=== PATIENT | female | born 1980 | race Caucasian/White ===

== ENCOUNTER 2017-12-31 18:09 | Emergency (ER) | payer OTHER ==
[~2017-12-31] VITALS: Ht 170.2 cm; Wt 77.1 kg
[~2017-12-31 18:09] MED LIST: ACETAMINOPHEN-1 EAC1; ACYCLOVIR 800800 MG PO; AMBIEN 10 MG TA10 MG; AMBIEN 10 MG TA10 MG PO; AMBIEN 5 MG TABL5 M1 PO; ASPIR 8181 MG PO; ATIVAN1 MG; ATIVAN1 MG PO; AUGMENTIN 875875 MG PO; AVELOX400 MG PO; AZITHROMYCIN 2250 MG PO; BACTRIM DS TAB1 EACH PO; BUTALB-APAP-CA1 EACH; CARISOPRODOL 3350 MG PO; CHANTIX0.5 MG PER TUBE; CHANTIX1 MG; CHANTIX1 MG PO; CIPRO500 MG PO; CLEOCIN HCL150 MG PO; COLACE100 MG PO; DARVOCET-N 1001 EACH PO; DEMEROL50 MG PO; DILAUDID 2 MG TA2 MG; DOXYCYCLINE 10100 MG PO; ENOXAPARIN120 MG/0.1 SUBQ; FIORICET 50-321 EACH PO; FLEXERIL PO; FLOVENT HFA 2220 MCG IH; HYDROCODON-ACE1 EAC7 PO; HYDROCODONE-AP1 EAC6 PO; HYDROCODONE-CHLO5 ML PO; HYDROXYZINE HCL25 M1 PO; IBUPROFEN 800800 M1 PO; LORTAB 5 MG/5001 TAB PO; LORTAB 5-325 M1 EACH PO; MEDROLDOSEPACK PO; NAPROSYN500 MG PO; NOHOMEMEDICATIONS; NORCO 5-325 TA1 EACH PO; NYSTATIN 1100000 U/M PO; ONDANSETRON HCL4 M2 PO; OXYCODONE HCL 55 MG; OXYCODONE HCL 55 MG PO; PERCOCET 10-321 EACH PO; PERCOCET 5-3251 EACH PO; PERCOCET PO; PHENERGAN 25 MG25 M1 PO; PLAVIX 75 MG TA75 M1 PO; PREDNISONE 10 M10 M1 PO; PREDNISONE 10 M10 MG PO; PREDNISONE 20 M20 MG PO; PREDNISONE50 MG PO; PROAIR HFA8.5 GM; PROMS25 WY RECTAL; PROVENTIL HFA6.7 G1; ROBAXIN 750 MG750 M1 PO; TRAMADOL 50 MG50 MG PO; TUSSIONEX PENN473 ML PO; VALIUM5 MG; VENTOLIN HFA 1818 GM INH; XANAX 0.5 MG0.5 M1 PO; XARELTO10 MG PO; XARELTO20 MG PO; ZANTAC 150MG T150 MG PO; ZOFRAN 4 MG ORAL4 MG PO; ZOFRAN ODT4 MG PO; ZOFRAN4 MG PO; ZPAK PO
[2017-12-31] MEDS ORDERED: PAXIL10 MG PO (18:15)
[2017-12-31] MEDS ORDERED: WELLBUTRIN XL300 MG PO (18:15)
[2017-12-31] MEDS ORDERED: XANAX 0.5 MG0.5 MG PO (18:15)
[2017-12-31] MEDS ORDERED: HYDROCODONE-AP1 EAC6 PO (19:51)
[2017-12-31 20:02] VITALS: BP 132/89
== END 2017-12-31 20:02 | disposition home or self-care (01) ==
LOC: M.ERS 18:09
DX: M25.552 Pain in left hip (principal); M79.604 Pain in right leg; F17.210 Nicotine dependence, cigarettes, uncomplicated; J45.909 Unspecified asthma, uncomplicated; Z88.0 Allergy status to penicillin; Z88.8 Allergy status to other drugs, medicaments and biological substances; Z90.710 Acquired absence of both cervix and uterus; Z86.73 Personal history of transient ischemic attack (TIA), and cerebral infarction without residual deficits

== ENCOUNTER 2018-03-07 21:09 | Emergency (ER) | payer OTHER ==
[~2018-03-07] VITALS: Ht 170.2 cm; Wt 77.1 kg
[~2018-03-07 21:09] MED LIST changes: +PAXIL10 MG PO; +WELLBUTRIN XL300 MG PO; +XANAX 0.5 MG0.5 MG PO
[2018-03-07] MEDS ORDERED: HYDROCODONE-AP1 EAC6 PO (22:01)
[2018-03-07 22:30] VITALS: BP 142/92
== END 2018-03-07 22:31 | disposition home or self-care (01) ==
LOC: M.ERS 21:09
DX: S62.615A Displaced fracture of proximal phalanx of left ring finger, initial encounter for closed fracture (principal); J45.909 Unspecified asthma, uncomplicated; F17.210 Nicotine dependence, cigarettes, uncomplicated; Z86.73 Personal history of transient ischemic attack (TIA), and cerebral infarction without residual deficits; Z87.442 Personal history of urinary calculi; Z86.718 Personal history of other venous thrombosis and embolism; Z88.1 Allergy status to other antibiotic agents; Z88.8 Allergy status to other drugs, medicaments and biological substances; W21.01XA Struck by football, initial encounter; Y93.89 Activity, other specified; Y92.89 Other specified places as the place of occurrence of the external cause; Y99.8 Other external cause status

== ENCOUNTER 2018-06-03 22:00 | Observation (INO) | payer OTHER ==
[~2018-06-03] VITALS: Ht 170.2 cm; Wt 79.8 kg
[2018-06-03 22:03] VITALS: BP 127/92
[2018-06-03 22:35] LABS: ABSOLUTE EOSINOPHILS 0.4 thou/uL (0.0-0.7); ABSOLUTE LYMPHOCYTES 2.4 thou/uL (0.8-5.3); ABSOLUTE MONOCYTES 0.7 thou/uL (0.0-1.2); ABSOLUTE NEUTROPHILS 3.4 thou/uL (1.6-8.1); BASOPHILS 0.2 %; EOSINOPHILS 6.2 %; HEMATOCRIT 42.6 % (37.0-47.0); HEMOGLOBIN 14.2 gm/dL (12.0-15.0); LYMPHOCYTES 34.6 %; MCH 31.6 pg (26.0-34.0); MCHC 33.3 g/dL (28.0-37.0); MCV 94.9 fL (80.0-100.0); MONOCYTES 9.6 %; MPV 7.5 fl. (7.2-11.1); NUCLEATED RBCS 0 /100WBC; PLATELET COUNT* 313 thou/uL (150-400); POLYS 49.4 %; RDW-CV 14.3 % (10.5-14.5); WBC 6.9 thou/uL (4.0-11.0)
[2018-06-03 22:43] LABS: POC CA IONIZED 4.7 mg/dL (4.5-5.3); POC CREATININE 0.8 mg/dL (0.6-1.3); POC HEMOGLOBIN 14.6 g/dL (12.0-17.0); POC POTASSIUM 3.7 mmol/L (3.5-4.9)
[2018-06-03 22:50] LABS: ANION GAP 4 mmol/L (7-16); BUN 13 mg/dL (7-18); CALCIUM 8.2 mg/dL (8.5-10.1); CHLORIDE 107 mmol/L (98-107); CO2 30 mmol/L (21-32); CREATININE 0.8 mg/dL (0.6-1.3); GLUCOSE 80 mg/dL (70-99); POTASSIUM 3.6 mmol/L (3.5-5.1); SODIUM 141 mmol/L (136-145)
[2018-06-03 22:51] LABS: PROTIME 9.6 Seconds (9.20-11.50)
[2018-06-03 22:56] LABS: ALBUMIN 3.4 g/dL (3.4-5.0); ALKALINE PHOSPHATASE 60 U/L (46-116); SGOT 15 U/L (15-37); SGPT 18 U/L (30-65); TOTAL BILIRUBIN 0.2 mg/dL (<0.1-1.0); TOTAL PROTEIN 6.8 g/dL (6.4-8.2); TROPONIN-I LEVEL <0.06 ng/mL (<0.06)
[2018-06-04] VITALS: BP 192/87
[2018-06-04 01:35] VITALS: BP 112/72
[2018-06-04 02:00] VITALS: BP 112/68
--- NOTE | 2018-06-04 04:33 | NUR ---
RECEIVED REPORT FROM DRESSMAKER GARMENT FITTER, OSCAR, AT 0120. PT ARRIVED TO UNIT VIA CART AT 0140. FAMILY AT BEDSIDE. NURSING ASSESSEMENT COMPLETED, FALL PRECAUTIONS IN PLACE, NON PROFIT JOB TITLES IN PLACE, TRACING SINUS RHYTHM. PT REPORTS PARTIAL PAIN RELIEF. HOURLY ROUNDING COMPLETED, CALL LIGHT WITHIN REACH. VOICED NO CONCERNS THIS SHIFT.
[2018-06-04 08:00] VITALS: BP 123/57
[2018-06-04 09:17] LABS: ALBUMIN 3.1 g/dL (3.4-5.0); CALCIUM 8.5 mg/dL (8.5-10.1); CREATININE 0.7 mg/dL (0.6-1.3); POTASSIUM 3.6 mmol/L (3.5-5.1); TOTAL BILIRUBIN 0.1 mg/dL (<0.1-1.0); TOTAL PROTEIN 6.4 g/dL (6.4-8.2)
[2018-06-04 09:19] LABS: CHOLESTEROL 186 mg/dL (<200); HDL CHOLESTEROL 45 mg/dL (>40); LDL CHOLESTEROL 126 mg/dL (<100); TC:HDL 4.1 Ratio (Not establshd); TRIGLYCERIDE 78 mg/dL (<150); VLDL 16 mg/dL (<40)
[2018-06-04 09:29] LABS: SERUM ASSESSMENT Clear
--- NOTE | 2018-06-04 10:47 | EKG ---
[place] [address] ELECTROCARDIOGRAM REPORT Name: KARINE GUAN BABS Room: [address] ADM IN [facility]#: [id number] Admission: 06/04/18 Attend Phys: Catie Dela Cruz MD Discharge: Date of : 76 Report #: [id number] THIS REPORT FOR: //name// [facility] ED Test Date: 2018-06-03 Test Time: 22:48:39 Pat Name: KARINE THOMPSON Department: Room: [facility] Gender: F Care Analyst: GONZALO : 1980 Requested By: Anil Chamorro Order Number: [id number] : Preet Bansal Measurements Intervals [place] Rate: 58 P: 64 MN: 169 QRS: 50 QRSD: 106 T: 51 QT: 404 QTc: 397 Interpretive Statements Sinus bradycardia Compared to ECG 05/01/2017 21:20:35 rate slowed Electronically Signed On 06-04-2018 10:47:43 CDT by Preet Bansal [email or web address] <ELECTRONICALLY SIGNED> By: Preet Bansal MD, [facility] 06/04/18 1047 2248 2248 Preet Bansal MD, [facility] /EPI
[2018-06-04 12:18] VITALS: BP 101/58
[2018-06-04 14:24] LABS: AMP/METHAMP Negative (Negative); BARBITURATES Negative (Negative); BENZODIAZEPINES POSITIVE (Negative); COCAINE Negative (Negative); METHADONE Negative (Negative); OPIATES POSITIVE (Negative); PCP Negative (Negative); THC POSITIVE (Negative)
[2018-06-04 15:26] VITALS: BP 101/58
== END 2018-06-04 16:00 | disposition home or self-care (01) ==
LOC: M.ERS 22:00 → M.TBA-ER 06-04 00:26 → M.2W 06-04 00:26
PROVIDERS: Emergency Medicine Emergency Medical Services; Internal Medicine; ADMIT Internal Medicine
DX: G93.40 Encephalopathy, unspecified (principal); F41.9 Anxiety disorder, unspecified; G89.29 Other chronic pain; J45.909 Unspecified asthma, uncomplicated; F12.90 Cannabis use, unspecified, uncomplicated; F32.9 Major depressive disorder, single episode, unspecified; F17.210 Nicotine dependence, cigarettes, uncomplicated; Z86.711 Personal history of pulmonary embolism; Z79.899 Other long term (current) drug therapy; Z90.710 Acquired absence of both cervix and uterus; Z86.73 Personal history of transient ischemic attack (TIA), and cerebral infarction without residual deficits; Z86.79 Personal history of other diseases of the circulatory system; Z72.89 Other problems related to lifestyle

== ENCOUNTER 2018-06-06 01:39 | Emergency (ER) | payer OTHER ==
[~2018-06-06] VITALS: Ht 170.2 cm; Wt 77.1 kg
[2018-06-06] MEDS ORDERED: PAXIL10 MG PO (01:52)
[2018-06-06] MEDS ORDERED: XANAX1 MG PO (01:52)
[2018-06-06] MEDS ORDERED: WELLBUTRIN XL300 MG PO (01:52)
[2018-06-06] MEDS ORDERED: NORCO 5-325 TA1 EACH PO (01:53)
[2018-06-06 01:57] LABS: HEMOGLOBIN 13.2 gm/dL (12.0-15.0); MCH 31.6 pg (26.0-34.0); MCHC 33.7 g/dL (28.0-37.0); MCV 93.7 fL (80.0-100.0); MPV 6.9 fl. (7.2-11.1); RBC 4.16 mil/uL (4.20-5.00); RDW-CV 13.9 % (10.5-14.5); WBC 7.8 thou/uL (4.0-11.0)
[2018-06-06 02:08] LABS: CALCIUM 8.1 mg/dL (8.5-10.1); CREATININE 0.7 mg/dL (0.6-1.3)
[2018-06-06] MEDS ORDERED: POTASSIUM20 PO (04:04)
[2018-06-06 04:36] VITALS: BP 104/66
== END 2018-06-06 04:39 | disposition home or self-care (01) ==
LOC: M.ERS 01:39
PROVIDERS: Emergency Medicine Emergency Medical Services
DX: F10.129 Alcohol abuse with intoxication, unspecified (principal); Y90.8 Blood alcohol level of 240 mg/100 ml or more; Z86.73 Personal history of transient ischemic attack (TIA), and cerebral infarction without residual deficits; Z88.8 Allergy status to other drugs, medicaments and biological substances

== ENCOUNTER 2018-07-26 09:27 | Emergency (ER) | payer OTHER ==
[~2018-07-26] VITALS: Ht 165.1 cm; Wt 81.7 kg
[~2018-07-26 09:27] MED LIST changes: +POTASSIUM20 PO; +XANAX1 MG PO
[2018-07-26 09:38] VITALS: BP 127/77
== END 2018-07-26 10:02 | disposition home or self-care (01) ==
LOC: M.ERS 09:27
DX: R10.9 Unspecified abdominal pain (principal); Z53.21 Procedure and treatment not carried out due to patient leaving prior to being seen by health care provider

== ENCOUNTER 2018-09-29 21:53 | Emergency (ER) | payer OTHER ==
[~2018-09-29] VITALS: Ht 170.2 cm; Wt 90.3 kg
[2018-09-29 22:18] LABS: ABSOLUTE BASOPHILS 0.1 thou/uL (0.0-0.2); ABSOLUTE EOSINOPHILS 0.3 thou/uL (0.0-0.7); ABSOLUTE LYMPHOCYTES 2.1 thou/uL (0.8-5.3); ABSOLUTE MONOCYTES 0.5 thou/uL (0.0-1.2); ABSOLUTE NEUTROPHILS 2.9 thou/uL (1.6-8.1); BASOPHILS 1.2 %; EOSINOPHILS 4.6 %; HEMATOCRIT 40.6 % (37.0-47.0); HEMOGLOBIN 13.8 gm/dL (12.0-15.0); LYMPHOCYTES 36.3 %; MCH 31.6 pg (26.0-34.0); MCHC 33.9 g/dL (28.0-37.0); MCV 93.2 fL (80.0-100.0); MONOCYTES 8.1 %; MPV 7.4 fl. (7.2-11.1); NUCLEATED RBCS 0 /100WBC; PLATELET COUNT* 311 thou/uL (150-400); POLYS 49.8 %; RBC 4.36 mil/uL (4.20-5.00); RDW-CV 14.8 % (10.5-14.5); WBC 5.9 thou/uL (4.0-11.0)
[2018-09-29 22:38] LABS: POTASSIUM 3.2 mmol/L (3.5-5.1)
[2018-09-29 22:39] LABS: CALCIUM 8.6 mg/dL (8.5-10.1); CREATININE 0.8 mg/dL (0.6-1.3)
[2018-09-29 22:43] LABS: ALBUMIN 3.6 g/dL (3.4-5.0); TOTAL BILIRUBIN 0.3 mg/dL (<0.1-1.0); TOTAL PROTEIN 6.3 g/dL (6.4-8.2)
[2018-09-29 22:44] LABS: ACETAMINOPHEN < 2 ug/mL (10-30); ALCOHOL 151 mg/dL (<10); SALICYLATE 4.1 mg/dL (2.8-20.0)
[2018-09-29 23:09] VITALS: BP 130/73
== END 2018-09-29 23:10 ==
LOC: M.ERS 21:53
PROVIDERS: Emergency Medicine
DX: F10.129 Alcohol abuse with intoxication, unspecified (principal); Y90.6 Blood alcohol level of 120-199 mg/100 ml; F17.210 Nicotine dependence, cigarettes, uncomplicated; Z88.1 Allergy status to other antibiotic agents; Z88.6 Allergy status to analgesic agent; Z88.8 Allergy status to other drugs, medicaments and biological substances; Z86.73 Personal history of transient ischemic attack (TIA), and cerebral infarction without residual deficits

== ENCOUNTER 2018-11-01 02:41 | Emergency (ER) | payer OTHER ==
[~2018-11-01] VITALS: Ht 170.2 cm; Wt 79.4 kg
[2018-11-01] MEDS ORDERED: OXYCODONE HCL 55 MG PO (02:51)
[2018-11-01] MEDS ORDERED: BRINTELLIX10 MG PO (02:54)
[2018-11-01 03:18] VITALS: BP 102/81
== END 2018-11-01 03:19 | disposition home or self-care (01) ==
LOC: M.ERS 02:41
DX: S60.222A Contusion of left hand, initial encounter (principal); S60.221A Contusion of right hand, initial encounter; F17.210 Nicotine dependence, cigarettes, uncomplicated; Z86.73 Personal history of transient ischemic attack (TIA), and cerebral infarction without residual deficits; Z90.710 Acquired absence of both cervix and uterus; Z88.1 Allergy status to other antibiotic agents; Z88.6 Allergy status to analgesic agent; Z88.8 Allergy status to other drugs, medicaments and biological substances; W22.8XXA Striking against or struck by other objects, initial encounter; Y93.89 Activity, other specified; Y92.89 Other specified places as the place of occurrence of the external cause; Y99.8 Other external cause status

== ENCOUNTER 2019-03-17 01:04 | Observation (INO) | payer OTHER ==
[~2019-03-17] VITALS: Ht 170.2 cm; Wt 79.4 kg
[~2019-03-17 01:04] MED LIST changes: +BRINTELLIX10 MG PO
[2019-03-17 01:10] VITALS: BP 143/84
[2019-03-17] MEDS ORDERED: ENOXAPARIN40 MG/0.1 SUBQ (01:19)
[2019-03-17 01:33] LABS: ABSOLUTE BASOPHILS 0.1 thou/uL (0.0-0.2); ABSOLUTE EOSINOPHILS 0.1 thou/uL (0.0-0.7); ABSOLUTE LYMPHOCYTES 3.7 thou/uL (0.8-5.3); ABSOLUTE NEUTROPHILS 5.5 thou/uL (1.6-8.1); BASOPHILS 1.3 %; EOSINOPHILS 1.1 %; HEMATOCRIT 37.6 % (37.0-47.0); HEMOGLOBIN 12.6 gm/dL (12.0-15.0); LYMPHOCYTES 35.6 %; MCH 30.9 pg (26.0-34.0); MCHC 33.4 g/dL (28.0-37.0); MCV 92.4 fL (80.0-100.0); MONOCYTES 9.6 %; MPV 7.7 fl. (7.2-11.1); NUCLEATED RBCS 0 /100WBC; PLATELET COUNT* 287 thou/uL (150-400); POLYS 52.4 %; RBC 4.07 mil/uL (4.20-5.00); RDW-CV 14.3 % (10.5-14.5); WBC 10.5 thou/uL (4.0-11.0)
[2019-03-17 01:46] LABS: ANION GAP 7 mmol/L (7-16); APTT 25.7 Seconds (25.0-31.3); BUN 22 mg/dL (7-18); CALCIUM 8.3 mg/dL (8.5-10.1); CHLORIDE 109 mmol/L (98-107); CO2 28 mmol/L (21-32); CREATININE 1.2 mg/dL (0.6-1.3); GLUCOSE 100 mg/dL (70-99); POTASSIUM 3.6 mmol/L (3.5-5.1); PROTIME 9.8 Seconds (9.20-11.50); SODIUM 144 mmol/L (136-145)
[2019-03-17 01:56] LABS: ALBUMIN 3.4 g/dL (3.4-5.0); ALKALINE PHOSPHATASE 61 U/L (46-116); LIPASE 148 U/L (73-393); MAGNESIUM 1.8 mg/dL (1.8-2.4); NT-PRO BRAIN NAT PEPTIDE 24 pg/mL (<300); SGOT 8 U/L (15-37); SGPT 30 U/L (30-65); TOTAL BILIRUBIN 0.2 mg/dL (<0.1-1.0); TOTAL PROTEIN 6.3 g/dL (6.4-8.2); TROPONIN-I LEVEL <0.06 ng/mL (<0.06)
[2019-03-17 06:01] VITALS: BP 95/59
--- NOTE | 2019-03-17 10:30 | NUR ---
REPORT GIVEN TO THIS NURSE BY BRANT CHRIS. THIS NURSE ASSUMED PT CARE AT THIS TIME.
--- NOTE | 2019-03-17 13:18 | NUR ---
PT GIVEN CUP OF WATER AFTER NUC Weave REQUESTED FOR PT TO DRINK AFTER STRESS TEST WAS COMPLETED. PT ASKED IF SHE COULD HAVE HER DAILY MEDICATIONS AND WAS INFORMED THAT HER NURSE WITH APPROPRIATE ANSWERS WILL BE BACK FROM LUNCH IN LESS THAN 30 MINUTES. PT CONTINUED TO ASK QUESTIONS ABOUT MEDICATIONS AND WAS TOLD THAT THIS NURSE DOES NOT HAVE AN APPROPRIATE ANSWER I WAS ONLY BRINGING A DRINK AFTER PROCEDURE WAS FINISHED AND WOULD BE GLAD TO ASK THE NURSE WHEN SHE GETS BACK FROM LUNCH. THE PT STATED THAT SHE NEEDS HER MEDICATIONS AND HAS NOT GOTTEN ANYTHING SINCE SHE HAS BEEN HERE. THE EMAR WAS VIEWED TO FIND THAT SHE HAS RECIEVED MEDICATIONS AND THAT WE REQUEST THAT SHE DOES NOT TAKE ANY MEDICATIONS THAT SHE HAS BROUGHT FROM HOME SHE IS ADMITTED TO THE HOSPITAL AND WE NEED TO MAKE SURE SHE IS GETTING APPROPRIATE DOSAGES. PT STATES SHE IS NOT SATISFIED WITH HER CARE AND WOULD LIKE HER DISCHARGE PAPERS. NOTIFIED CHARGE NURSE OF PT CONCERNS AND REQUESTS.
--- NOTE | 2019-03-17 13:28 | NUR ---
PAGED AND SPOKE WITH DR SKAGGS ABOUT PATIENTS CONCERNS AND WANTING DISCHARGE PAPERWORK. DR SKAGGS STATES THAT SHE CANNOT DISCHARGE UNTIL ALL RESULTS ARE BACK.
--- NOTE | 2019-03-17 14:02 | NUR ---
PT BECAME UPSET AFTER SHE WOKE UP DUE TO NOT GETTING HER LOVENOX, XANAX AND PAIN MEDS. RN LOOKED UP MEDICATIONS AND WAS ABLE TO GIVE HER NORCO FROM FLOOR ORDERS. GAVE HER HER LOVENOX NOT GIVEN EARLIER AND PT TOOK HER OWN XANAX WITH RN WATCHING. PT HAD BEEN WANTING TO LEAVE BUT HAS DECIDED TO STAY
--- NOTE | 2019-03-17 14:24 | 2DMMODE ---
[place] [address] 2 D/M-MODE ECHOCARDIOGRAM Name: KARINE GUAN Room: [facility]- ADM IN [facility]#: [id number] Admission: 03/17/19 Attend Phys: Audrey Fitzpatrick MD Discharge: Date of : 76 Date of Service: 03/17/19 1424 Report #: [id number] THIS REPORT FOR: //name// APPROVED REPORT Study performed: 03/17/2019 11:00:06 EXAM: Comprehensive 2D, Doppler, and color-flow Echocardiogram Patient Location: In-Patient Room #: er Status: routine BSA: 1.89 HR: 82 bpm BP: 106/52 mmHg Rhythm: NSR Other Information Study Quality: Good Indications Chest Pain 2D Dimensions IVSd: 7.64 (7-11mm) LVOT Diam: 19.84 (18-24mm) LVDd: 47.10 mm PWd: 10.19 (7-11mm) Ascending Ao: 32.96 (22-36mm) LVDs: 29.16 (25-40mm) Aortic Root: 31.11 mm Volumes Left Atrial Volume (Systole) LA ESV Index: 34.30 mL/m2 Aortic Valve AoV Peak Jermain.: 1.32 m/s AO Peak Gr.: 6.97 mmHg LVOT Max P.56 mmHg AO Mean Gr.: 3.35 mmHg LVOT Mean P.71 mmHg LVOT Max V: 1.28 m/s AO V2 VTI: 25.25 cm LVOT Mean V: 0.74 m/s ARCHIE (VTI): 2.87 cm2 LVOT V1 VTI: 23.42 cm Mitral Valve E/A Ratio: 1.38 MV Decel. Time: 230.87 ms MV E Max Jermain.: 0.74 m/[place] [address] 2 D/M-MODE ECHOCARDIOGRAM Name: KARINE GUAN Room: [place] [address] ADM IN [facility].#: [id number] Admission: 03/17/19 Attend Phys: Audrey Fitzpatrick MD Discharge: Date of : 76 Date of Service: 03/17/19 1424 Report #: [id number] MV PHT: 66.95 ms MVA (PHT): 3.29 cm2 TDI E/Lateral E': 5.69 E/Medial E': 8.22 Medial E' Jermain.: 0.09 m/s Lateral E' Jermain.: 0.13 m/s Pulmonary Valve PV Peak Jermain.: 1.00 m/s PV Peak Gr.: 3.99 mmHg Tricuspid Valve RAP Estimate: 5.00 mmHg TR Peak Gr.: 19.43 mmHg RVSP: 24.00 mmHg PA Pressure: 24.00 mmHg Left Ventricle The left ventricle is normal size. There is normal LV segmental wall motion. There is normal left ventricular wall thickness. Left ventricular systolic function is normal. The left ventricular ejection fraction is within the normal range. LVEF is 60%. The left ventricular diastolic function is normal. Right Ventricle The right ventricle is normal size. The right ventricular systolic function is normal. Atria The left atrium size is normal. PFO closure device seen The right atrium size is normal. Aortic Valve Aortic valve leaflets are mildly thickened. No aortic regurgitation is present. There is no aortic valvular stenosis. Mitral Valve The mitral valve is normal in structure. Trace mitral regurgitation. No evidence of mitral valve stenosis. Tricuspid Valve The tricuspid valve is normal in structure. Mild tricuspid regurgitation. No pulmonary hypertension. Pulmonic Valve The pulmonary valve is normal in structure. There is no pulmonic [place] [address] 2 D/M-MODE ECHOCARDIOGRAM Name: KARINE GUAN Room: [address] IN [facility]#: [id number] Admission: 03/17/19 Attend Phys: Audrey Fitzpatrick MD Discharge: Date of : 76 Date of Service: 03/17/19 1424 Report #: [id number] Great Vessels The aortic root is normal in size. IVC is normal in size and collapses >50% with inspiration. Pericardium There is no pericardial effusion. <Conclusion> The left ventricle is normal size. There is normal left ventricular wall thickness. Left ventricular systolic function is normal. The left ventricular ejection fraction is within the normal range. LVEF is 60%. The left ventricular diastolic function is normal. The right ventricle is normal size. The left atrium size is normal. Aortic valve leaflets are mildly thickened. No aortic regurgitation is present. There is no aortic valvular stenosis. The mitral valve is normal in structure. Trace mitral regurgitation. The tricuspid valve is normal in structure. IVC is normal in size and collapses >50% with inspiration. There is no pericardial effusion. There is normal LV segmental wall motion. PFO closure device seen <ELECTRONICALLY SIGNED> By: Isidoro Ibanez MD, FACC 03/17/19 1424 1424 1424 Isidoro Ibanez MD, FACC /INF
--- NOTE | 2019-03-17 14:40 | NUR ---
PT IN STRESS LAB
--- NOTE | 2019-03-17 15:00 | NUR ---
REPORT GIVEN TO BRANT ALEMAN WHO IS TO ASSUME PT CARE INPATIENT NURSE. BRANT ALEMAN AWARE PT IS IN STRESS TEST AND WILL BE BROUGHT UP BY INPATIENT BED ONCE BACK TO ER FROM STRESS TEST. PT TO GO TO ROOM 224. BELONGINGS TO BE TAKEN UP WITH PT IN BAG.
[2019-03-17 15:58] VITALS: BP 106/52
--- NOTE | 2019-03-17 16:20 | NUR ---
PT ORIENTED TO ROOM AND UNIT. BED LOW AND LOCKED, SIDE RAILS UP X3, CALL LGITH IN REACH. TELE PLACED ON PT BY SCRAP IRON CUTTER. WILLL CONTINUE TO ASSESS.
[2019-03-17 16:28] VITALS: BP 118/70
--- NOTE | 2019-03-17 17:38 | EKG ---
[place] [address] ELECTROCARDIOGRAM REPORT Name: KARINE GUAN Room: [address] ADM IN [facility].#: [id number] Admission: 03/17/19 Attend Phys: Audrey Fitzpatrick MD Discharge: Date of : 76 Report #: [id number] THIS REPORT FOR: //name// [facility] ED Test Date: 2019-03-17 Test Time: 01:13:55 Pat Name: KARINE THOMPSON Department: Room: [facility] Gender: F Strip Cutter: T[place] : 1980 Requested By: Anil Chamorro Order Number: [id number] MD: Javier Walden Measurements Intervals [place] Rate: 83 P: 51 MA: 153 QRS: 55 QRSD: 102 T: 38 QT: 366 QTc: 430 Interpretive Statements Sinus rhythm Baseline wander in lead(s) II,III,aVF,V2,V3,V4,V5,V6 Compared to ECG 06/03/2018 22:48:39 Sinus bradycardia no longer present Electronically Signed On 03-17-2019 17:38:13 CDT by Javier Walden [email or web address] <ELECTRONICALLY SIGNED> By: Javier Walden MD, FAC 03/17/19 1738 0113 Javier Walden MD, FAC /EPI
[2019-03-17 18:38] VITALS: BP 118/70
--- NOTE | 2019-03-17 18:45 | NUR ---
DISCONTINUE IV AND TELE, PT WILL BE DISCHARGED TO HOME.
--- NOTE | 2019-03-18 17:08 | CARDNUC ---
[place] [address] CARDIAC NUCLEAR IMAGING REPORT Name: KARINE GUAN Room: [address] M.R.#: [id number] Admission: 03/17/19 Attend Phys: Audrey Fitzpatrick MD Discharge: 03/17/19 Date of : 76 Date of Service: 03/18/19 1707 Report #: [id number] THIS REPORT FOR: //name// APPROVED REPORT Study performed: 03/17/2019 14:53:09 Exam: Nuclear Stress Test Patient Location: In-Patient [place] Tech:CHERRIE Rivera Ht: 5 ft 7 in Wt: 174 lbs BSA: 1.91 m2 BMI: 27.24 Stress Test Details HR Max Heart Rate (APMHR): 180 bpm Target HR (85% APMHR): 153 bpm BP ECG Resting ECG: Sinus Rhythm Stress ECG: Sinus Rhythm ST Change: None Arrhythmia: None Recovery ECG: Sinus Rhythm Recovery ST Change: None Recovery Arrhythmia: None Clinical Patient tolerated Lexiscan infusion without significant symptoms. Stress ECG Conclusion The baseline 12-lead EKG shows sinus rhythm with no significant ST or T wave abnormality. EKGs obtained during and post Lexiscan infusion show sinus rhythm with no significant ST or T wave changes when compared baseline. There were no stress-induced arrhythmias. NM EXAM: Myocardial Perfusion REST/STRESS Imaging Protocol: Rest Tc-99m/Stress Tc-99m 1 day Resting Data Rest SPECT myocardial perfusion imaging was performed in supine position 30 minutes following the intravenous injection of 10.7 mCi [facility] [address] [place] [address] CARDIAC NUCLEAR IMAGING REPORT Name: KARINE GUAN [address] [id number] Admission: 03/17/19 Attend Phys: Audrey Fitzpatrick MD Discharge: 03/17/19 Date of : 76 Date of Service: 03/18/19 1707 Report #: [id number] of Tc-99m Sestamibi. Time of rest injection: 1300 Date: 03/17/2019 The images were gated to evaluate regional wall motion and calculate left ventricular ejection fraction. Administration Route: IV Administration Site: Right AC Pharmacologic Stress Pharmacologic stress test was performed by injecting Regadenoson 0.4 mg IV push followed by the intravenous injection of 31.7 mCi of Tc-99m Sestamibi. Time of stress injection: 1500 Date: 03/17/2019 Administration Route: IV Administration Site: Right AC Gated Stress SPECT was performed 40 minutes after stress injection. The images were gated to evaluate regional wall motion and calculate left ventricular ejection fraction. Prone imaging was performed. Study Quality Study: Good Artifact: No artifact Study Data At rest, the left ventricular ejection fraction was 63%.. Post stress, the left ventricular ejection was 65%.. TID = 1.02. Perfusion Normal left ventricular perfusion. Wall Motion Normal left ventricular wall motion. Nuclear Conclusion ECG Findings: negative for ischemia Clinical Findings: negative for ischemia Nuclear Findings: negative for ischemia Exercise Capacity: not assessed Left Ventricular Function: normal Risk Study: low Myocardial perfusion images show no defect to suggest infarct or ischemia. Left ventricular systolic function is normal on gated studies. This is [place] [address] CARDIAC NUCLEAR IMAGING REPORT Name: KARINE GUAN Room: [address]#: [id number] Admission: 03/17/19 Attend Phys: Audrey Fitzpatrick MD Discharge: 03/17/19 Date of : 76 Date of Service: 03/18/191706 Report #: [id number] <Conclusion> The baseline 12-lead EKG shows sinus rhythm with no significant ST or T wave abnormality. EKGs obtained during and post Lexiscan infusion show sinus rhythm with no significant ST or T wave changes when compared baseline. There were no stress-induced arrhythmias. <ELECTRONICALLY SIGNED> By: Javier Walden MD, [facility] 03/18/191706 06 1707 Javier Walden MD, FACC /INF
--- NOTE | 2019-03-21 12:18 | CON ---
[address] [address] CONSULTATION Name: NANCIEMAIKOL DAVISKARINE FRANCOIS Room: [address] Dariana Lockett#: [id number] Admission: 03/17/19 Attend Phys: Audrey Fitzpatrick MD Discharge: 03/17/19 Date of : 76 Report #: [id number] THIS REPORT FOR: //name// CC: Preet Fitzpatrick DATE OF SERVICE: 03/17/2019 CARDIOLOGY CONSULTATION The patient is seen in the ER on 03/17/2019. The patient is a 38-year-old female with complex cardiac history. The patient has a history of PFO, status post closure, deep vein thrombosis and recurrent chest pain. She underwent cardiac catheterization in January, which revealed no significant stenoses. She presents now with chest and total body aching. She denies central chest heaviness or pressure suggesting ischemia. Risk factors for coronary artery disease include tobacco habituation, diabetes, hypercholesterolemia and hypertension. MEDICATIONS: Include alprazolam, bupropion, hydrocodone. She has been on subcutaneous Lovenox. PAST MEDICAL HISTORY: Remarkable for clipping of cerebral aneurysms, prior hysterectomy and closure of a PFO. MEDICATION ALLERGIES: INCLUDE AMOXICILLIN, ELIQUIS, GABAPENTIN AND BENADRYL. FAMILY HISTORY: Remarkable for general body aches. PHYSICAL EXAMINATION: GENERAL: Reveals a middle-aged female with a flat affect. VITAL SIGNS: Blood pressure is 140/70, pulse rate 64, respirations are 18 per minute. NECK: Jugular venous pressure is normal. CHEST: Clear. CARDIAC: Reveals normal first and second heart sounds without murmurs or gallops. ABDOMEN: Modestly obese. EXTREMITIES: Without edema and are satisfactorily perfused. LABORATORY DATA: Electrocardiogram from 03/17/2019 demonstrates a sinus rhythm and [place] [address] CONSULTATION Name: KARINE GUAN Room: [address] Cathryn#: [id number] Admission: 03/17/19 Attend Phys: Audrey Fitzpatrick MD Discharge: 03/17/19 Date of : 76 Report #: [id number] IMPRESSION: 1. Atypical chest pain. 2. Recent cardiac catheterization demonstrating no significant coronary artery stenosis. 3. Status post closure of patent foramen ovale. 4. Status post clipping of cerebral aneurysm. 5. Weight excess. 6. History of depression. RECOMMENDATIONS: Nuclear stress test has been ordered, though I doubt myocardial ischemia as the etiology for her discomfort. I would not recommend cardiac catheterization at this juncture. Critical care time is 32 minutes from 12:30 to 13:02 on 03/17/2019. <ELECTRONICALLY SIGNED> By: Isidoro Ibanez MD, [facility] 03/21/19 1218 1303 0231John Angel Ibanez MD, FACC /nt
== END 2019-03-17 18:52 | disposition home or self-care (01) ==
LOC: M.ERS 01:04 → M.TBA-ER 02:15 → M.2W 02:15
PROVIDERS: Emergency Medicine Emergency Medical Services; ADMIT Family Medicine
DX: R07.89 Other chest pain (principal); F32.9 Major depressive disorder, single episode, unspecified; F43.10 Post-traumatic stress disorder, unspecified; I67.1 Cerebral aneurysm, nonruptured; F17.210 Nicotine dependence, cigarettes, uncomplicated; E66.3 Overweight; Z86.73 Personal history of transient ischemic attack (TIA), and cerebral infarction without residual deficits; Z87.74 Personal history of (corrected) congenital malformations of heart and circulatory system; Z88.1 Allergy status to other antibiotic agents; Z88.8 Allergy status to other drugs, medicaments and biological substances; Z79.899 Other long term (current) drug therapy; Z90.710 Acquired absence of both cervix and uterus

== ENCOUNTER 2019-03-22 09:50 | Emergency (ER) | payer OTHER ==
[~2019-03-22] VITALS: Ht 170.2 cm; Wt 79.4 kg
[~2019-03-22 09:50] MED LIST changes: +ENOXAPARIN40 MG/0.1 SUBQ
[2019-03-22 10:23] LABS: ABSOLUTE BASOPHILS 0.1 thou/uL (0.0-0.2); ABSOLUTE EOSINOPHILS 0.1 thou/uL (0.0-0.7); ABSOLUTE LYMPHOCYTES 1.3 thou/uL (0.8-5.3); ABSOLUTE MONOCYTES 0.8 thou/uL (0.0-1.2); ABSOLUTE NEUTROPHILS 5.3 thou/uL (1.6-8.1); EOSINOPHILS 1.6 %; HEMATOCRIT 38.8 % (37.0-47.0); LYMPHOCYTES 16.7 %; MCH 31.1 pg (26.0-34.0); MCHC 33.5 g/dL (28.0-37.0); MONOCYTES 10.7 %; MPV 7.8 fl. (7.2-11.1); NUCLEATED RBCS 0 /100WBC; PLATELET COUNT* 215 thou/uL (150-400); RBC 4.17 mil/uL (4.20-5.00); RDW-CV 14.8 % (10.5-14.5); WBC 7.5 thou/uL (4.0-11.0)
[2019-03-22 10:32] LABS: ANION GAP 11 mmol/L (7-16); BUN 14 mg/dL (7-18); CALCIUM 8.3 mg/dL (8.5-10.1); CHLORIDE 109 mmol/L (98-107); CO2 25 mmol/L (21-32); CREATININE 0.7 mg/dL (0.6-1.3); GLUCOSE 99 mg/dL (70-99); POTASSIUM 3.6 mmol/L (3.5-5.1); SODIUM 145 mmol/L (136-145)
[2019-03-22 10:35] LABS: APTT 27.5 Seconds (25.0-31.3); INR 0.9; PROTIME 9.4 Seconds (9.20-11.50)
[2019-03-22] MEDS ORDERED: ZPAK PO (10:43)
[2019-03-22] MEDS ORDERED: PREDNISONE 20 M20 M1 PO (10:43)
[2019-03-22] MEDS ORDERED: TUSSIONEX PENN115 ML PO (10:43)
[2019-03-22 10:44] LABS: ALBUMIN 3.3 g/dL (3.4-5.0); ALKALINE PHOSPHATASE 52 U/L (46-116); CK-MB MASS < 0.5 ng/mL (<0.5-3.6); LIPASE 116 U/L (73-393); MAGNESIUM 1.8 mg/dL (1.8-2.4); NT-PRO BRAIN NAT PEPTIDE 33 pg/mL (<300); SGOT 7 U/L (15-37); SGPT 19 U/L (30-65); TOTAL BILIRUBIN 0.1 mg/dL (<0.1-1.0); TOTAL PROTEIN 6.6 g/dL (6.4-8.2); TROPONIN-I LEVEL <0.06 ng/mL (<0.06)
[2019-03-22] MEDS ORDERED: VENTOLIN HFA 1818 GM INH (10:51)
[2019-03-22 11:05] VITALS: BP 116/76
--- NOTE | 2019-03-23 11:16 | EKG ---
[place] [address] ELECTROCARDIOGRAM REPORT Name: KARINE GUAN BABS Room: [facility]#: [id number] Admission: 03/22/19 Attend Phys: Discharge: 03/22/19 Date of : 76 Report #: [id number] THIS REPORT FOR: //name// 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
== END 2019-03-22 11:07 | disposition home or self-care (01) ==
LOC: M.ERS 09:50
PROVIDERS: Family Medicine
DX: J40 Bronchitis, not specified as acute or chronic (principal); F32.9 Major depressive disorder, single episode, unspecified; F17.210 Nicotine dependence, cigarettes, uncomplicated; Z88.1 Allergy status to other antibiotic agents; Z88.8 Allergy status to other drugs, medicaments and biological substances; Z88.6 Allergy status to analgesic agent; Z86.73 Personal history of transient ischemic attack (TIA), and cerebral infarction without residual deficits; Z90.710 Acquired absence of both cervix and uterus; Z95.5 Presence of coronary angioplasty implant and graft

== ENCOUNTER 2019-05-16 17:49 | Emergency (ER) | payer OTHER ==
[~2019-05-16] VITALS: Ht 170.2 cm; Wt 83.9 kg
[~2019-05-16 17:49] MED LIST changes: +PREDNISONE 20 M20 M1 PO; +TUSSIONEX PENN115 ML PO
[2019-05-16] MEDS ORDERED: PREDNISONE 5 MG5 M1 PO (18:14)
[2019-05-16 19:37] LABS: ABSOLUTE BASOPHILS 0.1 thou/uL (0.0-0.2); ABSOLUTE EOSINOPHILS 0.1 thou/uL (0.0-0.7); ABSOLUTE MONOCYTES 0.6 thou/uL (0.0-1.2); ABSOLUTE NEUTROPHILS 3.7 thou/uL (1.6-8.1); BASOPHILS 0.9 %; EOSINOPHILS 1.3 %; HEMATOCRIT 37.4 % (37.0-47.0); HEMOGLOBIN 12.4 gm/dL (12.0-15.0); MCH 30.9 pg (26.0-34.0); MCHC 33.2 g/dL (28.0-37.0); MCV 93.1 fL (80.0-100.0); MONOCYTES 9.3 %; NUCLEATED RBCS 0 /100WBC; PLATELET COUNT* 259 thou/uL (150-400); POLYS 57.5 %; RBC 4.01 mil/uL (4.20-5.00); RDW-CV 15.3 % (10.5-14.5); WBC 6.4 thou/uL (4.0-11.0)
[2019-05-16 19:44] LABS: APTT 26.4 Seconds (25.0-31.3); CALCIUM 8.8 mg/dL (8.5-10.1); CREATININE 0.7 mg/dL (0.6-1.3); POTASSIUM 3.7 mmol/L (3.5-5.1)
[2019-05-16 19:53] LABS: ALBUMIN 3.7 g/dL (3.4-5.0); TOTAL BILIRUBIN 0.5 mg/dL (<0.1-1.0); TOTAL PROTEIN 6.7 g/dL (6.4-8.2)
[2019-05-16 21:24] VITALS: BP 145/81
--- NOTE | 2019-05-17 16:12 | EKG ---
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 05/17/19 1612 27 27 Preet Bansal MD, FACC /EPI
== END 2019-05-16 21:25 | disposition home or self-care (01) ==
LOC: M.ERS 17:49
PROVIDERS: Nurse Practitioner Family
DX: S30.1XXA Contusion of abdominal wall, initial encounter (principal); S09.8XXA Other specified injuries of head, initial encounter; F17.210 Nicotine dependence, cigarettes, uncomplicated; Z88.8 Allergy status to other drugs, medicaments and biological substances; Z88.1 Allergy status to other antibiotic agents; Z86.73 Personal history of transient ischemic attack (TIA), and cerebral infarction without residual deficits; Z90.710 Acquired absence of both cervix and uterus; W18.39XA Other fall on same level, initial encounter; Y92.89 Other specified places as the place of occurrence of the external cause; Y93.89 Activity, other specified; Y99.8 Other external cause status

== ENCOUNTER 2019-06-25 17:35 | Emergency (ER) | payer OTHER ==
[~2019-06-25] VITALS: Ht 172.7 cm; Wt 87.1 kg
[~2019-06-25 17:35] MED LIST changes: +PREDNISONE 5 MG5 M1 PO
[2019-06-25 17:39] VITALS: BP 145/78
[2019-06-25] MEDS ORDERED: PREDNISONE 20 M20 MG PO (17:43)
--- NOTE | 2019-06-27 10:54 | EKG ---
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: [facility] [place] [place] : 1980 Requested By: Anup Dickey Order Number: [id number] MD: Preet Bansal Measurements Intervals [place] Rate: 108 P: 71 TN: 150 QRS: 44 QRSD: 96 T: 39 QT: 337 QTc: 452 Interpretive Statements Sinus tachycardia artifact noted Compared to ECG 05/16/2019 19:28:49 Sinus rhythm no longer present Electronically Signed On 06-27-2019 10:54:04 CDT by Preet Bansal [email or web address] <ELECTRONICALLY SIGNED> By: Preet Bansal MD, [facility] 06/27/19 1054 174 174 Preet Bansal MD, FACC /EPI
== END 2019-06-25 17:54 | disposition left against medical advice (07) ==
LOC: M.ERS 17:35
DX: R07.89 Other chest pain (principal); F32.9 Major depressive disorder, single episode, unspecified; F17.210 Nicotine dependence, cigarettes, uncomplicated; Z86.73 Personal history of transient ischemic attack (TIA), and cerebral infarction without residual deficits; Z90.710 Acquired absence of both cervix and uterus; Z88.1 Allergy status to other antibiotic agents; Z88.8 Allergy status to other drugs, medicaments and biological substances

== ENCOUNTER 2019-10-04 20:03 | Emergency (ER) | payer OTHER ==
[~2019-10-04] VITALS: Ht 170.2 cm; Wt 86.2 kg
[2019-10-04] MEDS ORDERED: XANAX1 MG PO (20:19)
[2019-10-04 20:36] LABS: ABSOLUTE BASOPHILS 0.1 thou/uL (0.0-0.2); ABSOLUTE EOSINOPHILS 0.1 thou/uL (0.0-0.7); ABSOLUTE LYMPHOCYTES 2.2 thou/uL (0.8-5.3); ABSOLUTE MONOCYTES 0.6 thou/uL (0.0-1.2); ABSOLUTE NEUTROPHILS 5.9 thou/uL (1.6-8.1); BASOPHILS 1.5 %; EOSINOPHILS 1.5 %; HEMATOCRIT 40.4 % (37.0-47.0); HEMOGLOBIN 13.4 gm/dL (12.0-15.0); LYMPHOCYTES 24.4 %; MCH 29.2 pg (26.0-34.0); MCHC 33.2 g/dL (28.0-37.0); MCV 87.9 fL (80.0-100.0); MONOCYTES 6.6 %; MPV 8.2 fl. (7.2-11.1); NUCLEATED RBCS 0 /100WBC; PLATELET COUNT* 340 thou/uL (150-400); RDW-CV 17.7 % (10.5-14.5); WBC 8.9 thou/uL (4.0-11.0)
[2019-10-04 20:46] LABS: CALCIUM 9.4 mg/dL (8.5-10.1); CREATININE 0.9 mg/dL (0.6-1.3); POTASSIUM 4.2 mmol/L (3.5-5.1)
[2019-10-04 21:01] LABS: ALBUMIN 3.5 g/dL (3.4-5.0); TOTAL BILIRUBIN 0.2 mg/dL (<0.1-1.0); TOTAL PROTEIN 6.7 g/dL (6.4-8.2)
[2019-10-04 22:00] LABS: URINE BILIRUBIN NEGATIVE (Negative); URINE BLOOD NEGATIVE (Negative); URINE CLARITY CLEAR; URINE COLOR YELLOW; URINE GLUCOSE-RANDOM NEGATIVE (Negative); URINE KETONES NEGATIVE (Negative); URINE LEUKOCYTES-REFLEX NEGATIVE (Negative); URINE NITRITE-REFLEX NEGATIVE (Negative); URINE PROTEIN NEGATIVE (Negative); URINE UROBILINOGEN 0.2 E.U./dl (0.2-1.0)
[2019-10-04 22:07] LABS: AMP/METHAMP Negative (Negative); BARBITURATES Negative (Negative); BENZODIAZEPINES Negative (Negative); COCAINE Negative (Negative); METHADONE Negative (Negative); OPIATES Negative (Negative); PCP Negative (Negative); THC Negative (Negative)
[2019-10-04] MEDS ORDERED: REGLAN 10 MG TA10 MG PO (23:27)
[2019-10-04] MEDS ORDERED: PROTONIX40 MG PO (23:27)
[2019-10-04] MEDS ORDERED: CARAFATE 1 GM TA1 GM PO (23:27)
[2019-10-04 23:58] VITALS: BP 130/76
--- NOTE | 2019-10-05 13:26 | EKG ---
[place] [address] ELECTROCARDIOGRAM REPORT Name: KARINE THOMPSON Room: [facility]#: [id number] Admission: 10/04/19 Attend Phys: Discharge: 10/04/19 Date of : 76 Report #: [id number] THIS REPORT FOR: //name// [facility] ED Test Date: 2019-10-04 Test Time: 20:12:44 Pat Name: KARINE THOMPSON Department: Room: Gender: F Extruding Department Supervisor: SHERIF : 1980 Requested By: Evelyn Lobo Order Number: [id number] MD: Preet Bansal Measurements Intervals [place] Rate: 93 P: 63 NM: 126 QRS: 63 QRSD: 96 T: 47 QT: 353 QTc: 440 Interpretive Statements Sinus rhythm Probable left atrial enlargement Baseline wander in lead(s) V3,V4,V5,V6 Compared to ECG 06/25/2019 17:42:30 Sinus tachycardia no longer present Electronically Signed On 10-05-2019 13:25:44 [place] by Preet Bansal [email or web address] <ELECTRONICALLY SIGNED> By: Preet Bansal MD, FACC 10/05/19 1325 11 11 Preet Bansal MD, FAC /EPI
== END 2019-10-04 23:58 | disposition home or self-care (01) ==
LOC: M.ERS 20:03
PROVIDERS: Emergency Medicine
DX: R10.11 Right upper quadrant pain (principal); R10.13 Epigastric pain; R11.2 Nausea with vomiting, unspecified; I25.2 Old myocardial infarction; F32.9 Major depressive disorder, single episode, unspecified; F17.210 Nicotine dependence, cigarettes, uncomplicated; Z86.73 Personal history of transient ischemic attack (TIA), and cerebral infarction without residual deficits; Z90.710 Acquired absence of both cervix and uterus; Z88.8 Allergy status to other drugs, medicaments and biological substances; Z88.1 Allergy status to other antibiotic agents; Z88.6 Allergy status to analgesic agent

== ENCOUNTER 2019-10-22 02:09 | Emergency (ER) | payer OTHER ==
[~2019-10-22] VITALS: Ht 170.2 cm; Wt 88.5 kg
[~2019-10-22 02:09] MED LIST changes: +CARAFATE 1 GM TA1 GM PO; +PROTONIX40 MG PO; +REGLAN 10 MG TA10 MG PO
[2019-10-22] MEDS ORDERED: MORPHINE SULFAT15 MG PO (02:29)
[2019-10-22 03:24] VITALS: BP 126/71
== END 2019-10-22 03:25 | disposition home or self-care (01) ==
LOC: M.ERS 02:09
DX: S63.8X1A Sprain of other part of right wrist and hand, initial encounter (principal); F32.9 Major depressive disorder, single episode, unspecified; I25.2 Old myocardial infarction; F17.210 Nicotine dependence, cigarettes, uncomplicated; Z86.73 Personal history of transient ischemic attack (TIA), and cerebral infarction without residual deficits; Z90.710 Acquired absence of both cervix and uterus; Z88.1 Allergy status to other antibiotic agents; Z88.8 Allergy status to other drugs, medicaments and biological substances; X50.0XXA Overexertion from strenuous movement or load, initial encounter; Y93.89 Activity, other specified; Y92.89 Other specified places as the place of occurrence of the external cause; Y99.8 Other external cause status

== ENCOUNTER 2019-10-31 21:28 | Inpatient (IN) | payer OTHER ==
[~2019-10-31] VITALS: Ht 170.2 cm; Wt 90.7 kg
[~2019-10-31 21:28] MED LIST changes: +MORPHINE SULFAT15 MG PO
[2019-10-31 21:30] VITALS: BP 128/80
[2019-10-31 21:45] LABS: ABSOLUTE BASOPHILS 0.1 thou/uL (0.0-0.2); ABSOLUTE EOSINOPHILS 0.1 thou/uL (0.0-0.7); ABSOLUTE LYMPHOCYTES 3.4 thou/uL (0.8-5.3); ABSOLUTE MONOCYTES 0.8 thou/uL (0.0-1.2); ABSOLUTE NEUTROPHILS 3.5 thou/uL (1.6-8.1); BASOPHILS 1.2 %; EOSINOPHILS 1.2 %; HEMOGLOBIN 13.2 gm/dL (12.0-15.0); LYMPHOCYTES 43.1 %; MCH 29.6 pg (26.0-34.0); MCHC 33.8 g/dL (28.0-37.0); MCV 87.8 fL (80.0-100.0); NUCLEATED RBCS 0 /100WBC; PLATELET COUNT* 294 thou/uL (150-400); POLYS 44.5 %; RBC 4.44 mil/uL (4.20-5.00); RDW-CV 17.7 % (10.5-14.5); WBC 7.8 thou/uL (4.0-11.0)
[2019-10-31 21:54] LABS: CALCIUM 8.1 mg/dL (8.5-10.1); CREATININE 0.9 mg/dL (0.6-1.3); POTASSIUM 3.1 mmol/L (3.5-5.1)
[2019-10-31 21:57] LABS: PROTIME 10.6 Seconds (9.20-11.50)
[2019-10-31 22:04] LABS: ALBUMIN 3.6 g/dL (3.4-5.0); TOTAL BILIRUBIN 0.4 mg/dL (<0.1-1.0); TOTAL PROTEIN 6.7 g/dL (6.4-8.2)
[2019-10-31 22:09] LABS: URINE BILIRUBIN NEGATIVE (Negative); URINE BLOOD NEGATIVE (Negative); URINE CLARITY CLEAR; URINE COLOR YELLOW; URINE GLUCOSE-RANDOM NEGATIVE (Negative); URINE KETONES NEGATIVE (Negative); URINE LEUKOCYTES-REFLEX NEGATIVE (Negative); URINE NITRITE-REFLEX NEGATIVE (Negative); URINE PROTEIN NEGATIVE (Negative); URINE SPECIFIC GRAVITY <= 1.005 (1.005-1.030); URINE UROBILINOGEN 0.2 E.U./dl (0.2-1.0)
[2019-10-31 22:16] LABS: AMP/METHAMP Negative (Negative); BARBITURATES Negative (Negative); BENZODIAZEPINES Negative (Negative); COCAINE Negative (Negative); METHADONE Negative (Negative); OPIATES POSITIVE (Negative); PCP Negative (Negative); THC Negative (Negative)
[2019-10-31 23:55] VITALS: BP 168/86
[2019-11-01] VITALS (13 sets, daily range): BP systolic 87–127; BP diastolic 47–82
[2019-11-01] MEDS ORDERED: ATIVAN2 MG PO (00:10)
[2019-11-01 10:33] LABS: CHOLESTEROL 193 mg/dL (<200); HDL CHOLESTEROL 53 mg/dL (>40); LDL CHOLESTEROL 112 mg/dL (<100); TC:HDL 3.6 Ratio (Not establshd); TRIGLYCERIDE 142 mg/dL (<150); VLDL 28 mg/dL (<40)
[2019-11-01 10:34] LABS: SERUM ASSESSMENT Clear
--- NOTE | 2019-11-01 13:48 | EKG ---
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 & Development: : 1980 Requested By: Evelyn Lobo Order Number: [id number] MD: Preet Bansal Measurements Intervals [place] Rate: 72 P: 56 [place]: 163 QRS: 44 QRSD: 101 T: 45 QT: 350 QTc: 383 Interpretive Statements Sinus rhythm Probable left atrial enlargement Compared to ECG 10/04/2019 20:12:44 No significant changes Electronically Signed On 11-01-2019 13:48:10 FASHION JOURNALIST by Preet Bansal [email or web address] <ELECTRONICALLY SIGNED> By: Preet Bansal MD, [facility] 11/01/19 1348 30 30 Preet Bansal MD, [facility] /EPI
[2019-11-01] MEDS ORDERED: OXYCODONE HCL 55 MG PO (14:48)
--- NOTE | 2019-11-01 17:29 | CARD ---
[address] [address] CARDIAC CATH REPORT Name: KARINE GUAN Room: [address]#: [id number] Admission: 10/31/19 Attend Phys: Catie Dela Cruz MD Discharge: 11/01/19 Date of : 76 Report #: [id number] THIS REPORT FOR: //name// APPROVED REPORT Study performed: 11/01/2019 13:10:50 Patient Details Patient Status: In-Patient Room #: The patient is a 39 year-old female Event Personnel Javier Walden Pc Support Specialist, Yola Hightower RN Hvac Instructor, Bora Cook Scrub, Shea Hyman RTR Monitor Procedures Performed Art Access - R femoral artery, Left Heart Cath w/or w/o Coronaries , Hemostasis w/ Mynx Admission/Lab Medications/Medications given during procedure Oxygen Nasal cannula 2 l per min, Lidocaine Subcut 18 ml, Midazolam (Versed) IV 2 mg, Fentanyl IV 50 mcg Procedure Narrative The patient was brought electively to the Cardiac Catheterization Laboratory and was prepped and draped in a sterile manner. The right femoral was infiltrated with 2% Lidocaine subcutaneous anesthesia. A 6F Whippany sheath was inserted into the right femoral artery. Coronary angiography was performed using coronary diagnostic catheters. The right coronary system was accessed and visualized with a 6F JR4 catheter. The left coronary system was accessed and visualized with a 6F JL4 catheter. The left ventricle was accessed and visualized with a 6F Pigtail catheter. Closure device was deployed with a 6 Fr Mynx. The patient tolerated the procedure well and there were no complications associated with the procedure. Intraoperative Conscious Sedation Sedation start time: 13:47 Case end Time: 13:56 Fentanyl 50 mcg Versed 2 mg Fluoro Time: 1.4 minutes Dose: DAP 98565 cGycm2 686 mGy Contrast Type and Amount: Omnipaque [address] [place] [address] CARDIAC CATH REPORT Name: KARINE GUAN Room: [address] IN .R.#: [id number] Admission: 10/31/19 Attend Phys: Catie Dela Cruz MD Discharge: 11/01/19 Date of : 76 Report #: [id number] Diagnostic Cath Left Main The left main coronary artery is normal and bifurcates into a left anterior descending and circumflex was coronary artery. LAD The left anterior descending coronary artery is normal in its proximal mid and distal portion. There are 2 diagonal branches that appear normal. Diagonal 1 Normal. Diagonal 2 Normal. Circumflex The circumflex was coronary artery is normal proximally and terminates in a large obtuse marginal branch that is normal. OM1 Normal large in branch. Right Coronary The right coronary artery appears normal in its proximal mid and distal portion. R PDA The PDA is a moderate sized branch vessel that is normal. RPLV Posterior lateral LV branch is normal. Left Ventriculography The left ventricle is normal in size with normal contractility. Hemodynamics The aortic pressure is 125/66 mmHg with a mean of 53 mmHg. The left ventricular pressure is 117/4 mmHg with a mean of mmHg. The left ventricular end diastolic pressure is 18 mmHg. Conclusion 1. NormalLeft heart catheterization. 2. Normal coronary arteries. 3. Normal left jugular end-diastolic pressure. Recommendations 1. Smoking cessation recommended. 2. Continue risk factor modification. <ELECTRONICALLY SIGNED> By: Javier Walden MD, FACC 11/01/19 1728 27 1728Michaeana Walden MD, FACC /INF
== END 2019-11-01 16:45 | disposition home or self-care (01) | DRG 287 ==
LOC: M.ERS 21:28 → M.TBA-ER 22:38 → M.2W 22:38
PROVIDERS: Emergency Medicine; Registered Nurse; ADMIT Internal Medicine
PROC: 4A023N7 Measurement of Cardiac Sampling and Pressure, Left Heart, Percutaneous Approach (ICD-10-PCS; principal; 2019-11-01)
PROC: B2151ZZ Fluoroscopy of Left Heart using Low Osmolar Contrast (ICD-10-PCS; 2019-11-01)
PROC: B2111ZZ Fluoroscopy of Multiple Coronary Arteries using Low Osmolar Contrast (ICD-10-PCS; 2019-11-01)
DX: I20.1 Angina pectoris with documented spasm (principal); K21.9 Gastro-esophageal reflux disease without esophagitis; F17.210 Nicotine dependence, cigarettes, uncomplicated; F41.9 Anxiety disorder, unspecified; J45.909 Unspecified asthma, uncomplicated; M94.0 Chondrocostal junction syndrome [Tietze]; F32.9 Major depressive disorder, single episode, unspecified; F43.10 Post-traumatic stress disorder, unspecified; Z86.73 Personal history of transient ischemic attack (TIA), and cerebral infarction without residual deficits; Z90.710 Acquired absence of both cervix and uterus; I25.2 Old myocardial infarction; Z79.899 Other long term (current) drug therapy; Z88.1 Allergy status to other antibiotic agents; Z88.8 Allergy status to other drugs, medicaments and biological substances; Z72.89 Other problems related to lifestyle; Z86.711 Personal history of pulmonary embolism; Z86.718 Personal history of other venous thrombosis and embolism; Z79.01 Long term (current) use of anticoagulants

== ENCOUNTER 2019-11-23 21:08 | Emergency (ER) | payer OTHER ==
[~2019-11-23] VITALS: Ht 170.2 cm; Wt 88.5 kg
[~2019-11-23 21:08] MED LIST changes: +ATIVAN2 MG PO
[2019-11-23] MEDS ORDERED: NEXIUM40 MG PO (21:25)
[2019-11-23 21:59] LABS: INFLUENZA A ANTIGEN Negative (Negative); INFLUENZA B ANTIGEN Negative (Negative)
[2019-11-23 22:05] LABS: ABSOLUTE BASOPHILS 0.1 thou/uL (0.0-0.2); ABSOLUTE EOSINOPHILS 0.1 thou/uL (0.0-0.7); ABSOLUTE LYMPHOCYTES 1.7 thou/uL (0.8-5.3); ABSOLUTE MONOCYTES 0.7 thou/uL (0.0-1.2); ABSOLUTE NEUTROPHILS 6.6 thou/uL (1.6-8.1); BASOPHILS 0.6 %; EOSINOPHILS 0.8 %; HEMATOCRIT 38.8 % (37.0-47.0); HEMOGLOBIN 13.3 gm/dL (12.0-15.0); LYMPHOCYTES 18.4 %; MCH 29.9 pg (26.0-34.0); MCHC 34.2 g/dL (28.0-37.0); MCV 87.5 fL (80.0-100.0); MPV 8.1 fl. (7.2-11.1); NUCLEATED RBCS 0 /100WBC; PLATELET COUNT* 270 thou/uL (150-400); POLYS 72.2 %; RBC 4.44 mil/uL (4.20-5.00); RDW-CV 17.1 % (10.5-14.5); WBC 9.2 thou/uL (4.0-11.0)
[2019-11-23 22:12] LABS: CALCIUM 8.5 mg/dL (8.5-10.1); CREATININE 0.8 mg/dL (0.6-1.3); POTASSIUM 3.6 mmol/L (3.5-5.1)
[2019-11-23 22:27] LABS: ALBUMIN 3.6 g/dL (3.4-5.0); TOTAL BILIRUBIN 0.3 mg/dL (<0.1-1.0); TOTAL PROTEIN 7.5 g/dL (6.4-8.2)
[2019-11-23 23:40] LABS: URINE BILIRUBIN NEGATIVE (Negative); URINE BLOOD NEGATIVE (Negative); URINE CLARITY CLEAR; URINE COLOR YELLOW; URINE GLUCOSE-RANDOM NEGATIVE (Negative); URINE KETONES 1+ (Negative); URINE LEUKOCYTES-REFLEX NEGATIVE (Negative); URINE NITRITE-REFLEX NEGATIVE (Negative); URINE PROTEIN NEGATIVE (Negative); URINE SPECIFIC GRAVITY <= 1.005 (1.005-1.030); URINE UROBILINOGEN 0.2 E.U./dl (0.2-1.0)
[2019-11-24] MEDS ORDERED: AZITHROMYCIN 2250 MG PO (00:08)
[2019-11-24] MEDS ORDERED: PROAIR HFA8.5 GM INH (00:09)
[2019-11-24] MEDS ORDERED: Z-TUSS AC 2 MG118 ML PO (00:14)
[2019-11-24 00:31] VITALS: BP 105/59
== END 2019-11-24 00:33 | disposition home or self-care (01) ==
LOC: M.ERS 21:08
PROVIDERS: Physician Assistant
DX: J18.9 Pneumonia, unspecified organism (principal); F17.210 Nicotine dependence, cigarettes, uncomplicated; Z88.1 Allergy status to other antibiotic agents; Z88.6 Allergy status to analgesic agent; Z88.8 Allergy status to other drugs, medicaments and biological substances; Z86.73 Personal history of transient ischemic attack (TIA), and cerebral infarction without residual deficits; Z90.710 Acquired absence of both cervix and uterus